=== PATIENT | female | born 1995 | race Caucasian/White ===

== ENCOUNTER 2017-03-29 11:50 | Emergency (ER) | payer MEDICARE ==
[~2017-03-29] VITALS: Ht 157.5 cm; Wt 65.8 kg
[2017-03-29 12:00] VITALS: BP 93/55
--- NOTE | 2017-03-29 12:01 | NUR ---
Patient ambulated to bed 1 with family. RN evaluating patient at bedside.
--- NOTE | 2017-03-29 12:02 | NUR ---
21/F PRESENT TO ER FOR EVALUATION OF RASH TO UPPER EXTREMITIES AND BACK SINCE THIS AM. PATIENT STATES THEY HAVE BEEN SLEEPING IN A USED MATRESS FOR THE LAST 2 WEEKS AND STARTED ITCHING. PT HAS RASH ON UPPER EXTREMITIES BUT DENIES ANY SIGHTING OF INSECTS OR ALLERGIES TO ANY MATERIALS OR PRODUCTS. AAOX4, BREATHING EVEN AND UNLABORED. ERMD NOTIFIED OF PATIENT STATUS.
--- NOTE | 2017-03-29 12:03 | NUR ---
Dr. Gale evaluating patient at bedside.
--- NOTE | 2017-03-29 12:32 | NUR ---
Patient discharged with v/s stable. Written and verbal after care instructions given and explained. Patient alert, oriented and verbalized understanding of instructions. Ambulatory with steady gait. All questions addressed prior to discharge. ID band removed. Patient advised to follow up with PMD. Rx of ZYRTEC 10MG TABLET AND SYNALAR 0.025%TOPICAL OINTMENT given. Patient educated on indication of medication including possible reaction and side effects. Opportunity to ask questions provided and answered.
[2017-03-29 12:33] VITALS: BP 110/65
== END 2017-03-29 12:29 | disposition home or self-care (01) ==
LOC: MED 11:50
DX: L29.9 Pruritus, unspecified (principal); Z91.010 Allergy to peanuts
CPT/HCPCS: 99282